=== PATIENT | female | born 1965 | race African-American/Black ===

== ENCOUNTER 2019-11-18 16:47 | Emergency (ER) | payer BC, OTHER ==
--- NOTE | 2019-11-18 17:48 | RAD REPORT ---
EXAM DESCRIPTION: [place] Single View11/18/2019 5:22 pm CLINICAL HISTORY: sob COMPARISON: 2016 FINDINGS: The lungs appear clear of acute infiltrate. The heart is borderline enlarged IMPRESSION: No acute abnormalities displayed
[2019-11-18] MEDS ORDERED: NA CHLORIDE 0.9% 1,000 ML ONE (17:49)
[2019-11-18] MEDS ORDERED: IPRATROPIUM BROM 0.5MG/2.5ML ONE (17:49)
[2019-11-18] MEDS ORDERED: METHYLPREDNISOLONE 125 MG INJ ONE (17:49)
[2019-11-18] MEDS ORDERED: ALBUTEROL 2.5 MG/3 ML NEB SOL ONE (17:49)
[2019-11-18 17:53] LABS: Absolute Lymphocytes (CBC) 1.4 K/uL (0.7-4.9); Basophils % 0.5 % (0-1.3); Lymphocytes % 13.9 % (15.3-44.8); MPV 8.7 fL (7.6-11.3); RBC Red Blood Cell Count 4.97 M/uL (3.86-4.86)
[2019-11-18 18:04] LABS: BUN Blood Urea Nitrogen 15 mg/dL (7-18); Bicarbonate 28 mmol/L (21-32); Glucose Level 210 mg/dL (74-106); Potassium 3.5 mmol/L (3.5-5.1); Sodium Level 140 mmol/L (136-145); Troponin (Emerg Dept Use Only) < 0.02 ng/mL (0.0-0.045)
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
[2019-11-18 19:54] VITALS: O2SAT 99
[2019-11-18 19:56] VITALS: BP 122/81
[2019-11-18 20:02] VITALS: TEMP 98.3
--- NOTE | 2019-11-20 07:03 | EKG ---
Test Date: 2019-11-18 Test Time: 17:06:18 [place] Sp[place] Hooking: [place] MEASUREMENT RESULTS: Intervals: Rate: 79 HI: 134 QRSD: 72 QT: 424 QTc: 486 [place]: P: 39 HI: 134 QRS: 4 T: 21 INTERPRETIVE STATEMENTS: Normal sinus rhythm Cannot rule out Anterior infarct, age undetermined Abnormal ECG Compared to ECG 10/23/2016 18:24:30 No significant changes Electronically Signed On 11-20-19 07:00:34 CDT by Cnorad Pepper
== END 2019-11-18 19:33 | disposition home or self-care (01) ==
LOC: ER 16:47
DX: R21 Rash and other nonspecific skin eruption (principal); I10 Essential (primary) hypertension; Z88.5 Allergy status to narcotic agent; Z88.2 Allergy status to sulfonamides; Z91.09 Other allergy status, other than to drugs and biological substances
CPT/HCPCS: 96361; 93005; 85025; 80048; 36415; 84484; 71045; 96374; 99285; J7030; J2930